=== PATIENT | male | born 1965 | race Two or more races ===

== ENCOUNTER 2023-11-26 17:44 | Inpatient (IN) | payer OTHER ==
--- NOTE | 2023-11-26 18:18 | ED ---
Abdominal Pain HPI - General Source: patient, RN notes reviewed Mode of arrival: ambulatory Limitations: no limitations <Mel Floyd - Last Filed: 11/26/23 18:17> <Jarrell Olmos - Last Filed: 11/27/23 03:04> - General Stated Complaint: Abd pain Time Seen by Provider: 11/26/23 18:17 - History of Present Illness Initial Comments: Quick note: 58-year-old male presented to the ER with a chief complaint of abdominal pain. Patient reports on Sunday he started to experience right lower quadrant abdominal pain. He also reports chills on Sunday. He denies any diarrhea, constipation, nausea or vomiting. Appetite has been mostly n ormal. Denies urinary complaints. (Mel Floyd) 58-year-old male presenting with chief complaint of abdominal pain. Patient has been having right lower quadrant abdominal pain since Sunday. He denies any nausea, vomiting, or diarrhea. He did have a bowel movement on Sunday when he woke up and started experiencing the pain. He recently took a laxative because he did not have a bowel movement on Sunday, had a normal bowel movement today Sunday. No dysuria or hematuria. Appetite has been slightly decreased. No history of abdominal surgeries. (Jarrell Olmos) - Related Data Allergies Allergy/AdvReac Type Severity Reaction Status Date / Time No Known Allergies Allergy Verified 11/26/23 18:34 Review of Systems ROS Other: All systems not noted in ROS Statement are negative. <Mel Floyd - Last Filed: 11/26/23 18:17> ROS Other: All systems not noted in ROS Statement are negative. <Jarrell Olmos - Last Filed: 11/27/23 03:04> ROS Statement: Those systems with pertinent positive or pertinent negative responses have been documented in the HPI. General Exam <Mel Floyd - Last Filed: 11/26/23 18:17> Limitations: no limitations General appearance: alert, in no apparent distress Head exam: Present: atraumatic, normocephalic Eye exam: Present: normal appearance, EOMI Neck exam: Present: normal inspection. Absent: meningismus Respiratory exam: Absent: respiratory distress Cardiovascular Exam: Present: regular rate GI/Abdominal exam: Present: soft, tenderness, guarding. Absent: distended, rebound, rigid Expanded GI/Abdominal exam: Present: tenderness at [place] Point Neurological exam: Present: alert, oriented X3 Psychiatric exam: Present: normal affect, normal mood Skin exam: Present: warm, dry <Jarrell Olmos - Last Filed: 11/27/23 03:04> - General Exam Comments Initial Comments: Visual Physical Exam Vital signs reviewed General: Well-appearing, nontoxic, no acute distress. Head: Normocephalic, atraumatic Eyes: PERRLA, EOMI ENT: Airway patent Chest: Nonlabored breathing Skin: No visual rash, normal skin tone Neuro: Alert and oriented 3 Musculoskeletal: No gross abnormalities (Mel Floyd) Course Vital Signs 11/26/23 18:33 Temperature 99.3 F Pulse Rate 71 Respiratory 18 Rate Blood Pressure 126/75 O2 Sat by Pulse 97 Oximetry Medical Decision Making <Mel Floyd - Last Filed: 11/26/23 18:17> - Lab Data Result diagrams: 11/26/23 18:24 11/26/23 18:24 <Jarrell Olmos - Last Filed: 11/27/23 03:04> - Medical Decision Making I performed the quick note portion of this chart. Electronically signed by Mel Floyd PA-C (Mel Floyd) Was pt. sent in by a medical professional or institution (RACIEL Schumacher, SENIOR ADMINISTRATIVE ASSISTANT, urgent care, hospital, or intermediate...) When possible be specific @ -No Did you speak to anyone other than the patient for history (EMS, parent, family, police, friend...)? What history was obtained from this source @ -No Did you review nursing and triage notes (agree or disagree)? Why? @ -I reviewed and agree with nursing and triage notes Were old charts reviewed (outside hosp., previous admission, EMS record, old EKG, old radiological studies, urgent care reports/EKG's, intermediate records)? Report findings @ -No old charts were reviewed Differential Diagnosis (chest pain, altered mental status, abdominal pain women, abdominal pain men, vaginal bleeding, weakness, fever, dyspnea, syncope, headache, dizziness, GI bleed, back pain, seizure, CVA, palpatations, mental health, musculoskeletal)? @ -MDM Differential Abdominal Pain Men: Appendicitis, cholecystitis, diverticulosis, ischemic bowel, pancreatitis, hepatitis, UTI, gastroenteritis, AAA, incarcerated hernia, bowel obstruction, constipation, inflammatory bowel, hepatitis, peptic ulcer disease, splenic infarction, perforated viscus, testicular torsion... This is not meant to be an all-inclusive list EKG interpreted by me (3pts min.). @ -As above X-rays interpreted by me (1pt min.). @ -None done CT interpreted by me (1pt min.). @ -CT shows perforated appendicitis, consisting of free air adjacent to the expected location of the appendix. Small tubular viscus extends from the free air to the cecum. Surgical evaluation recommended. U/S interpreted by me (1pt. min.). @ -None done What testing was considered but not performed or refused? (CT, X-rays, U/S, labs)? Why? @ -None What meds were considered but not given or refused? Why? @ -None Did you discuss the management of the patient with other professionals (professionals i.e. , PA, SENIOR ADMINISTRATIVE ASSISTANT, lab, RT, psych nurse, social services analyst, cook apprentice pastry, teacher, radio officer, pillowcase cutter)? Give summary @ -Spoke with Dr. Craig who accepted admission Was smoking cessation discussed for >3mins.? @ -No Was critical care preformed (if so, how long)? @ -No Were there social determinants of health that impacted care today? How? (Homelessness, low income, unemployed, alcoholism, drug addiction, transportation, low edu. Level, literacy, decrease access to med. care, long term, rehab)? @ -No Was there de-escalation of care discussed even if they declined (Discuss DNR or withdrawal of care, Hospice)? DNR status @ -No What co-morbidities impacted this encounter? (DM, HTN, Smoking, COPD, CAD, Cancer, CVA, ARF, Chemo, Hep., AIDS, mental health diagnosis, sleep apnea, morbid obesity)? @ -None Was patient admitted / discharged? Hospital course, mention meds given and route, prescriptions, significant lab abnormalities, going to OR and other pertinent info. @ -58-year-old male presenting with chief complaint of right lower quadrant pain ongoing for 2 days. Workup is initiated by triage. WBC 10.9. Lactic acid is WNL. Urine shows no infectious process. CT is obtained and patient is later placed in a room and evaluated by myself. While waiting for CT results patient did sign out AMA, a few minutes after CT results returned which showed perforated appendicitis. Nurse Marcos and I called the patient and his significan t other and instructed them to report back to the ER. Patient returned to room 6. Started on Zosyn after blood cultures are drawn. As needed pain and nausea meds and IV fluids are ordered. Admitted for surgical evaluation in the morning. Patient is NPO. He is agreeable with this plan. I discussed this case with my attending Dr. Caraballo. Undiagnosed new problem with uncertain prognosis? @ -No Drug Therapy requiring intensive monitoring for toxicity (Heparin, Nitro, Insulin, Cardizem)? @ -No Were any procedures done? @ -No Diagnosis/symptom? @ -Appendicitis with perforation Acute, or Chronic, or Acute on Chronic? @ -Acute Uncomplicated (without systemic symptoms) or Complicated (systemic symptoms)? @ -Complicated Side effects of treatment? @ -No Exacerbation, Progression, or Severe Exacerbation? @ -No Poses a threat to life or bodily function? How? (Chest pain, [place], [place], pneumonia, PE, COPD, DKA, ARF, appy, cholecystitis, CVA, Diverticulitis, Homicidal, Suicidal, threat to staff... and all critical care pts) @ -Yes (Jarrell Olmos) - Lab Data Lab Results 11/26/23 11/26/23 11/26/23 Range/Units 18:24 18:24 18:24 WBC 10.9 H (3.8-10.6) k/uL RBC 4.86 (4.30-5.90) m/uL Hgb 15.5 (13.0-17.5) gm/dL Hct 44.2 (39.0-53.0) % MCV 91.1 (80.0-100.0) fL MCH 31.9 (25.0-35.0) pg MCHC 35.0 (31.0-37.0) g/dL RDW 12.5 (11.5-15.5) % Plt Count 167 (150-450) k/uL MPV 8.9 Neutrophils % 84 % Lymphocytes % 9 % Monocytes % 4 % Eosinophils % 2 % Basophils % 0 % Neutrophils # 9.1 H (1.3-7.7) k/uL Lymphocytes # 1.0 (1.0-4.8) k/uL Monocytes # 0.5 (0-1.0) k/uL Eosinophils # 0.2 (0-0.7) k/uL Basophils # 0.0 (0-0.2) k/uL Sodium 136 L (137-145) mmol/L Potassium 3.8 (3.5-5.1) mmol/L Chloride 106 (98-107) mmol/L Carbon Dioxide 22 (22-30) mmol/L Anion Gap 8 mmol/L BUN 13 (9-20) mg/dL Creatinine 0.80 (0.66-1.25) mg/dL Est GFR (CKD-EPI)AfAm >90 (>60 ml/min/1.73 sqM) Est GFR (CKD-EPI)NonAf >90 (>60 ml/min/1.73 sqM) Glucose 119 H (74-99) mg/dL Plasma Lactic Acid Al (0.7-2.0) mmol/L Calcium 8.4 (8.4-10.2) mg/dL Total Bilirubin 1.0 (0.2-1.3) mg/dL AST 18 (17-59) U/L ALT 12 (4-49) U/L Alkaline Phosphatase 41 (38-126) U/L Total Protein 6.5 (6.3-8.2) g/dL Albumin 4.0 (3.5-5.0) g/dL Amylase 46 (30-110) U/L Lipase 96 (23-300) U/L Urine Color Yellow Urine Appearance Clear (Clear) Urine pH 6.0 (5.0-8.0) Ur Specific [place] 1.022 (1.001-1.035) Urine Protein 1+ H (Negative) Urine Glucose (UA) Negative (Negative) Urine Ketones Negative (Negative) Urine Blood Trace H (Negative) Urine Nitrite Negative (Negative) Urine Bilirubin Negative (Negative) Urine Urobilinogen 12.0 (<2.0) mg/dL Ur Leukocyte Esterase Negative (Negative) Urine RBC 1 (0-5) /hpf Urine WBC 1 (0-5) /hpf Urine Mucus Rare H (None) /hpf 11/26/23 Range/Units 18:24 WBC (3.8-10.6) k/uL RBC (4.30-5.90) m/uL Hgb (13.0-17.5) gm/dL Hct (39.0-53.0) % MCV (80.0-100.0) fL MCH (25.0-35.0) pg MCHC (31.0-37.0) g/dL RDW (11.5-15.5) % Plt Count (150-450) k/uL MPV Neutrophils % % Lymphocytes % % Monocytes % % Eosinophils % % Basophils % % Neutrophils # (1.3-7.7) k/uL Lymphocytes # (1.0-4.8) k/uL Monocytes # (0-1.0) k/uL Eosinophils # (0-0.7) k/uL Basophils # (0-0.2) k/uL Sodium (137-145) mmol/L Potassium (3.5-5.1) mmol/L Chloride (98-107) mmol/L Carbon Dioxide (22-30) mmol/L Anion Gap mmol/L BUN (9-20) mg/dL Creatinine (0.66-1.25) mg/dL Est GFR (CKD-EPI)AfAm (>60 ml/min/1.73 sqM) Est GFR (CKD-EPI)NonAf (>60 ml/min/1.73 sqM) Glucose (74-99) mg/dL Plasma Lactic Acid Al 0.8 (0.7-2.0) mmol/L Calcium (8.4-10.2) mg/dL Total Bilirubin (0.2-1.3) mg/dL AST (17-59) U/L ALT (4-49) U/L Alkaline Phosphatase (38-126) U/L Total Protein (6.3-8.2) g/dL Albumin (3.5-5.0) g/dL Amylase (30-110) U/L Lipase (23-300) U/L Urine Color Urine Appearance (Clear) Urine pH (5.0-8.0) Ur Specific [place] (1.001-1.035) Urine Protein (Negative) Urine Glucose (UA) (Negative) Urine Ketones (Negative) Urine Blood (Negative) Urine Nitrite (Negative) Urine Bilirubin (Negative) Urine Urobilinogen (<2.0) mg/dL Ur Leukocyte Esterase (Negative) Urine RBC (0-5) /hpf Urine WBC (0-5) /hpf Urine Mucus (None) /hpf Disposition <Mel Floyd - Last Filed: 11/26/23 18:17> Time of Disposition: 02:40 <Jarrell Olmos - Last Filed: 11/27/23 03:04> Clinical Impression: Appendicitis with perforation Disposition: ADMITTED IP TO THIS HOSP Condition: Fair Referrals: None,Stated [Primary Care Provider] - 1-2 days
[2023-11-26 18:56] LABS: Basophils % (A) 0 %; Eosinophils # (A) 0.2 k/uL (0-0.7); Eosinophils % (A) 2 %; HCT 44.2 % (39.0-53.0); HGB 15.5 gm/dL (13.0-17.5); Lymphocytes % (A) 9 %; MCH 31.9 pg (25.0-35.0); MCV 91.1 fL (80.0-100.0); Mean Platelet Volume 8.9; Monocytes # (A) 0.5 k/uL (0-1.0); Monocytes % (A) 4 %; Neutrophils # (A) 9.1 k/uL (1.3-7.7); Neutrophils % (A) 84 %; Platelet Count 167 k/uL (150-450); RBC 4.86 m/uL (4.30-5.90); RDW 12.5 % (11.5-15.5); WBC 10.9 k/uL (3.8-10.6)
[2023-11-26 19:14] LABS: ALT 12 U/L (4-49); AST 18 U/L (17-59); African American GFR (CKD) >90 (>60 ml/min/1.73 sqM); Alkaline Phosphatase 41 U/L (38-126); Amylase 46 U/L (30-110); Anion Gap 8 mmol/L; Blood Urea Nitrogen 13 mg/dL (9-20); Calcium 8.4 mg/dL (8.4-10.2); Carbon Dioxide 22 mmol/L (22-30); Chloride 106 mmol/L (98-107); Glucose 119 mg/dL (74-99); Lipase 96 U/L (23-300); Non-African American GFR(CKD) >90 (>60 ml/min/1.73 sqM); Potassium 3.8 mmol/L (3.5-5.1); Sodium 136 mmol/L (137-145); Total Protein 6.5 g/dL (6.3-8.2)
[2023-11-26 21:58] LABS: Appearance,Urine Clear (Clear); Bilirubin,Urine Negative (Negative); Blood,Urine Trace (Negative); Color,Urine Yellow; Glucose,Urine (UA) Negative (Negative); Ketones,Urine Negative (Negative); Leukocyte Esterase,Urine Negative (Negative); Mucus,Urine Rare /hpf; Nitrite,Urine Negative (Negative); Protein,Urine 1+ (Negative); RBC,Urine 1 /hpf (0-5); Specific Gravity,Urine 1.022 (1.001-1.035); WBC,Urine 1 /hpf (0-5)
[2023-11-26] MEDS: KETOROLAC 15 MG/ML 1 ML VIAL IVP STA (23:49)
[2023-11-26] MEDS: SODIUM CHLORIDE 0.9% 1,000 ML IV ONE (23:50)
--- NOTE | 2023-11-27 02:29 | CT ---
EXAM: CT Abdomen and Pelvis With Intravenous Contrast CLINICAL HISTORY: ITS.REASON CT Reason: RLQ pain TECHNIQUE: Axial computed tomography images of the abdomen and pelvis with intravenous contrast. CTDI is 17.7 mGy and DLP is 889 mGy-cm. This CT exam was performed using one or more of the following dose reduction techniques: automated exposure control, adjustment of the mA and/or kV according to patient size, and/or use of iterative reconstruction technique. COMPARISON: No relevant prior studies available. FINDINGS: Lung bases: Unremarkable. No mass. No consolidation. ABDOMEN: Liver: Unremarkable. No mass. Gallbladder and bile ducts: Unremarkable. No calcified stones. No ductal dilation. Pancreas: Unremarkable. No mass. No ductal dilation. Spleen: Unremarkable. No splenomegaly. Adrenals: Unremarkable. No mass. Kidneys and ureters: Unremarkable. No solid mass. No hydronephrosis. Stomach and bowel: Unremarkable. No obstruction. No mucosal thickening. PELVIS: Appendix: Perforated appendicitis, consisting of free air adjacent to the expected location of the appendix. Small tubular viscus extends from the free air to the cecum. Surgical evaluation recommended. Bladder: Unremarkable. No mass. Reproductive: Unremarkable as visualized. ABDOMEN and PELVIS: Intraperitoneal space: See above. Bones/joints: No acute fracture. No dislocation. Soft tissues: Unremarkable. Vasculature: Unremarkable. No abdominal aortic aneurysm. Lymph nodes: Unremarkable. No enlarged lymph nodes. IMPRESSION: Perforated appendicitis, consisting of free air adjacent to the expected location of the appendix. Small tubular viscus extends from the free air to the cecum. Surgical evaluation recommended. <MYCVCSECTION> Communications: 11/27/23 02:33 Call Doctor Regarding Other, called Dr. Caraballo on 11/26 02:33 (-04:00)
[2023-11-27] MEDS ORDERED: MORPHINE SULFATE 4 MG/ML SYRINGE IV PRN (02:39)
[2023-11-27] MEDS ORDERED: NALOXONE 0.4 MG/ML 1 ML VIAL IV PRN ×2 (02:39→10:39)
[2023-11-27] MEDS: SODIUM CHLORIDE 0.9% 1,000 ML IV SCH (03:08)
[2023-11-27] MEDS: PIPERACILLIN-TAZOBACTAM 3.375 GM in SODIUM CHLORIDE 0.9% 100 ML IVPB STA (03:08)
[2023-11-27] MEDS: MORPHINE SULFATE 4 MG/ML SYRINGE IVP STA (07:09)
--- NOTE | 2023-11-27 08:15 | P.GSHP ---
History of Present Illness H&P Date: 11/27/23 Chief Complaint: Right lower quadrant pain This a 58-year-old male who has had right lower quadrant pain for [address] scan. Patient found to have evidence of ruptured appendicitis. Past Medical History Past Medical History: No Reported History History of Any Multi-Drug Resistant Organisms: None Reported Additional Past Surgical History / Comment(s): vasectomy Past Psychological History: No Psychological Hx Reported Smoking Status: Never smoker Past Alcohol Use History: Occasional Past Drug Use History: None Reported Medications and Allergies Allergies Allergy/AdvReac Type Severity Reaction Status Date / Time No Known Allergies Allergy Verified 11/26/23 18:34 Surgical - Exam Vital Signs Temp Pulse Resp BP Pulse Ox 99.3 F 71 18 126/75 97 11/26/23 18:33 11/26/23 18:33 11/26/23 18:33 11/26/23 18:33 11/26/23 18:33 - General well developed, well nourished, no distress - Eyes PERRL - ENT normal pinna - Neck no masses - Respiratory normal expansion - Cardiovascular Rhythm: regular - Abdomen Right lower quadrant pain Abdomen: soft Results - Labs 11/26/23 18:24 11/26/23 18:24 Abnormal Lab Results - Last 24 Hours (Table) 11/26/23 11/26/23 11/26/23 Range/Units 18:24 18:24 18:24 WBC 10.9 H (3.8-10.6) k/uL Neutrophils # 9.1 H (1.3-7.7) k/uL Sodium 136 L (137-145) mmol/L Glucose 119 H (74-99) mg/dL Urine Protein 1+ H (Negative) Urine Blood Trace H (Negative) Urine Mucus Rare H (None) /hpf Diabetes panel 11/26/23 Range/Units 18:24 Sodium 136 L (137-145) mmol/L Potassium 3.8 (3.5-5.1) mmol/L Chloride 106 (98-107) mmol/L Carbon Dioxide 22 (22-30) mmol/L BUN 13 (9-20) mg/dL Creatinine 0.80 (0.66-1.25) mg/dL Glucose 119 H (74-99) mg/dL Calcium 8.4 (8.4-10.2) mg/dL AST 18 (17-59) U/L ALT 12 (4-49) U/L Alkaline Phosphatase 41 (38-126) U/L Total Protein 6.5 (6.3-8.2) g/dL Albumin 4.0 (3.5-5.0) g/dL Calcium panel 11/26/23 Range/Units 18:24 Calcium 8.4 (8.4-10.2) mg/dL Albumin 4.0 (3.5-5.0) g/dL Pituitary panel 11/26/23 Range/Units 18:24 Sodium 136 L (137-145) mmol/L Potassium 3.8 (3.5-5.1) mmol/L Chloride 106 (98-107) mmol/L Carbon Dioxide 22 (22-30) mmol/L BUN 13 (9-20) mg/dL Creatinine 0.80 (0.66-1.25) mg/dL Glucose 119 H (74-99) mg/dL Calcium 8.4 (8.4-10.2) mg/dL Adrenal panel 11/26/23 Range/Units 18:24 Sodium 136 L (137-145) mmol/L Potassium 3.8 (3.5-5.1) mmol/L Chloride 106 (98-107) mmol/L Carbon Dioxide 22 (22-30) mmol/L BUN 13 (9-20) mg/dL Creatinine 0.80 (0.66-1.25) mg/dL Glucose 119 H (74-99) mg/dL Calcium 8.4 (8.4-10.2) mg/dL Total Bilirubin 1.0 (0.2-1.3) mg/dL AST 18 (17-59) U/L ALT 12 (4-49) U/L Alkaline Phosphatase 41 (38-126) U/L Total Protein 6.5 (6.3-8.2) g/dL Albumin 4.0 (3.5-5.0) g/dL Assessment and Plan Plan: CT scan suggestive of l acute appendicitis with possible rupture. Patient was sent for laparoscopic appendectomy. Patient aware the risk of possible open procedure.
[2023-11-27] MEDS: PIPERACILLIN-TAZOBACTAM 3.375 GM in SODIUM CHLORIDE 0.9% 100 ML IVPB SCH (08:32)
[2023-11-27] MEDS: DEXAMETHASONE SOD PHOSPHATE 4 MG/ML 1 ML VIAL IVP STA (09:43)
[2023-11-27] MEDS: ONDANSETRON 4 MG/2 ML VIAL IVP PRN (09:43)
[2023-11-27] MEDS: HEPARIN SODIUM,PORCINE 5,000 UNIT/ML 1 ML VIAL SQ STA (09:50)
[2023-11-27] MEDS: IV FLUID CONTINUATION 1,000 ML IV ONE ×2 (09:52→14:32)
[2023-11-27] MEDS: LIDOCAINE 1%-EPI 1:100,000 20 ML VIAL SQ ONE ×3 (09:54→10:20)
[2023-11-27] MEDS ORDERED: SUGAMMADEX SODIUM 200 MG/2 ML SDV IV ONE (09:57)
[2023-11-27] MEDS ORDERED: SUCCINYLCHOLINE CHLORIDE 200 MG/10 ML VIAL IV ONE (09:57)
[2023-11-27] MEDS ORDERED: PROPOFOL 10 MG/ML 20 ML VIAL IV ONE (09:57)
[2023-11-27] MEDS ORDERED: LIDOCAINE 1% INJ 10MG/ML (20 ML MDV) ONE (09:57)
[2023-11-27] MEDS ORDERED: ROCURONIUM 10 MG/ML (5 ML VIAL) IV ONE (09:57)
[2023-11-27] MEDS ORDERED: KETOROLAC 15 MG/ML 1 ML VIAL ONE (09:57)
[2023-11-27] MEDS ORDERED: KETAMINE HCL IN 0.9 % NACL 50 MG/5 ML SYRINGE ONE (09:57)
[2023-11-27] MEDS ORDERED: MIDAZOLAM 2 MG/2 ML VIAL ONE (09:57)
[2023-11-27] MEDS ORDERED: fentaNYL (PF) 50 MCG/ML 2 ML AMP ONE (09:57)
[2023-11-27] MEDS: LACTATED RINGERS 1,000 ML IV ONE (10:20)
[2023-11-27] MEDS ORDERED: HYDROmorphone 1 MG/ML 1 ML SYRINGE IVP PRN (10:39)
[2023-11-27] MEDS ORDERED: HYDROmorphone 0.5 MG/0.5 ML SYRINGE IVP PRN (10:39)
[2023-11-27] MEDS ORDERED: ONDANSETRON 4 MG/2 ML VIAL IVP PRN (10:39)
[2023-11-27] MEDS ORDERED: HYDROcodone/APAP 5-325MG 1 EACH TAB PO PRN (10:39)
--- NOTE | 2023-11-27 10:39 | P.OP ---
Date of Procedure: 11/27/23 Preoperative Diagnosis: Acute appendicitis Postoperative Diagnosis: Acute appendicitis Procedure(s) Performed: Laparoscopic appendectomy Anesthesia: CARLEY Surgeon: Pancho Craig Estimated Blood Loss (ml): 5 Pathology: other (Appendix) Condition: stable Disposition: PACU Operative Findings: Acute appendicitis with microperforation Description of Procedure: The patient's placed on the operating table in the supine position. The patient received general anesthesia. The abdomen was prepped and draped in the usual sterile fashion. The skin was anesthetized 1% local Xylocaine at the trocar sites. Using an 11 blade the skin was incised at the umbilicus. The umbilicus was grasped with a Quinn clamp and then a Veress needle was placed into the peritoneal cavity. Position of the Veress needle was confirmed with positive drop test. After adequate insufflation a 5 mm trocar was placed into the peritoneal cavity. The abdomen was further insufflated. And then the laparoscope was placed in the peritoneal cavity. Next a 5 mm trocar was placed in the midline suprapubic position. And then a 10 mm trocar was placed in the midline epigastric position. The patient was rotated with the right side up and in Trendelenburg. The appendix was visualized. The appendix appeared to be inflamed. The appendix was grasped and then using the Harmonic scissors the mesoappendix was divided. A PDS Endoloop was then placed around the base of the appendix. And then the appendix was divided using Harmonic scissors. The appendix was placed into an Endo Catch and brought out through the 10 mm trocar site. The abdomen was irrigated. There is no bleeding seen. The trochars withdrawn. The skin was closed interrupted 3-0 Monocryl suture. Dermabond dressing was applied. Patient was sent to recovery room in stable condition.
[2023-11-27] MEDS: LACTATED RINGERS 1,000 ML IV SCH (14:32)
[2023-11-27] MEDS: KETOROLAC 15 MG/ML 1 ML VIAL IVP SCH (15:31)
[2023-11-27] MEDS: ACETAMINOPHEN TAB 325 MG TAB PO PRN (21:58)
[2023-11-28] MEDS: LACTATED RINGERS 1,000 ML IV SCH (01:00)
[2023-11-28 08:41] LABS: Basophils # (A) 0.02 X 10*3/uL (0.00-0.10); Basophils % (A) 0.3 %; Eosinophils # (A) 0.04 X 10*3/uL (0.04-0.35); Eosinophils % (A) 0.6 %; HCT 35.6 % (39.6-50.0); HGB 12.1 g/dL (13.0-17.0); Lymphocytes # (A) 0.95 X 10*3/uL (0.90-5.00); Lymphocytes % (A) 13.9 %; MCH 30.4 pg (27.0-32.0); MCV 89.4 FL (80.0-97.0); Mean Platelet Volume 11.9 FL (9.5-12.2); Monocytes % (A) 7.3 %; NRBC Per 100 WBC 0 X 10*3/uL (0.00-0.01); Neutrophils % (A) 77.5 %; Platelet Count 139 X 10*3/uL (140-440); RBC 3.98 X 10*6/uL (4.40-5.60); RDW 12.4 % (11.5-14.5); WBC 6.84 X 10*3/uL (4.50-10.00)
[2023-11-28] MEDS: KETOROLAC 15 MG/ML 1 ML VIAL IVP PRN (09:06)
[2023-11-28] MEDS: ENOXAPARIN 40 MG/0.4 ML SYRINGE SQ SCH (09:07)
[2023-11-28 09:08] LABS: BUN/Creat Ratio 10.64 Ratio (12.00-20.00); Blood Urea Nitrogen 11.7 mg/dL (9.0-27.0); Calcium 7.9 mg/dL (8.7-10.3); Carbon Dioxide 22.8 mmol/L (21.6-31.8); Chloride 105 mmol/L (96-109); Glucose 103 mg/dL (70-110); Potassium 3.9 mmol/L (3.5-5.5); Sodium 138 mmol/L (135-145)
--- NOTE | 2023-11-28 15:45 | P.PN ---
Subjective Progress Note Date: 11/28/23 CHIEF COMPLAINT: Acute appendicitis HISTORY OF PRESENT ILLNESS: Patient is postop day 1 status post laparoscopic appendectomy. Patient reports his pain is controlled. He denies any nausea or vomiting. He did have a bowel movement. He is up and ambulating. Afebrile. BP on the lower side 95/57. WBC 6.84 Hgb 12.1 platelets 139 Patient seen and examined with Dr. Craig PHYSICAL EXAM: VITAL SIGNS: Reviewed. GENERAL: Well-developed in no acute distress. ABDOMEN: Soft. Nondistended. Incision sites clean dry and intact NEUROLOGIC: Alert and oriented. Cranial nerves II through XII grossly intact. ASSESSMENT: 1. Acute appendicitis with microperforation 2. Hypotension PLAN: -Continue antibiotics -1 L fluid bolus ordered for hypotension -Anticipate possible discharge tomorrow -Continue regular diet -Continue IV fluids -Continue pain management -DVT prophylaxis Lovenox Physician Fuel Injection Servicer note has been reviewed by physician. Signing provider agrees with the documented findings, assessment, and plan of care. Objective - Vital Signs Vital signs: Vital Signs Temp 97.7 F 11/28/23 14:00 Pulse 63 11/28/23 14:00 Resp 16 11/28/23 14:00 BP 94/52 11/28/23 14:00 Pulse Ox 97 11/28/23 14:00 FiO2 Intake & Output 11/27/23 11/28/23 11/28/23 18:59 06:59 18:59 Intake Total 1700 236 Output Total 4 Balance 1696 236 Intake: IV 1700 Oral 236 Output: Estimated Blood Loss 4 Other: # Voids 1 1 1 # Bowel Movements 2 - Labs CBC & Chem 7: 11/28/23 05:22 11/28/23 05:22 Labs: Abnormal Lab Results - Last 24 Hours (Table) 11/28/23 11/28/23 Range/Units 05:22 05:22 RBC 3.98 L (4.40-5.60) X 10*6/uL Hgb 12.1 L (13.0-17.0) g/dL Hct 35.6 L (39.6-50.0) % Plt Count 139 L (140-440) X 10*3/uL BUN/Creatinine Ratio 10.64 L (12.00-20.00) Ratio Calcium 7.9 L (8.7-10.3) mg/dL Microbiology - Last 24 Hours (Table) 11/27/23 03:08 Blood Culture - Preliminary Blood 11/27/23 02:53 Blood Culture - Preliminary Blood
[2023-11-28] MEDS: SODIUM CHLORIDE 0.9% 1,000 ML IV ONE (15:59)
[2023-11-29 03:24] VITALS: RESP 16
--- NOTE | 2023-11-29 05:38 | P.CONS ---
History of Present Illness - Reason for Consult Consult date: 11/28/23 Medical management, status post appendectomy - History of Present Illness This is a 58-year-old male who was recently admitted under general surgery services as patient was noted to have severe lower quadrant pain and underwent CT imaging in the ER showing to have a perforated appendicitis and is status post laparoscopic appendectomy. On admission his initial white count was mildly elevated at 10.9 and patient reports he may have had a fever and reports to starting to have pain in the lower abdomen that lasted for 2 days and persisted before coming in. Other labs reviewed and within normal limits. Patient had a low-grade temp last night of 99.9 postoperatively other than that has been afebrile. Patient is currently sitting up in the chair reports to feeling well and has been walking frequently. Per surgery patient will continue on IV antibiotic therapy for an additional 24 hours with possible discharge planning in the next 24 hours. Patient reports he does not currently have a primary care provider and resources will be provided on discharge. Patient denies any significant medical history other than a mildly elevated cholesterol level and has been attempting diet modification. REVIEW OF SYSTEMS: CONSTITUTIONAL: No fever, no malaise, no fatigue. HEENT: No recent visual problems or hearing problems. Denied any sore throat. CARDIOVASCULAR: No chest pain, orthopnea, PND, no palpitations, no syncope. PULMONARY: No shortness of breath, no cough, no hemoptysis. GASTROINTESTINAL: No diarrhea, no nausea, no vomiting, reported abdominal pain although improved. NEUROLOGICAL: No headaches, no weakness, no numbness. HEMATOLOGICAL: Denies any bleeding or petechiae. GENITOURINARY: Denies any burning micturition, frequency, or urgency. MUSCULOSKELETAL/RHEUMATOLOGICAL: Denies any joint pain, swelling, or any muscle pain. ENDOCRINE: Denies any polyuria or polydipsia. The rest of the 14-point review of systems is negative. PHYSICAL EXAMINATION: GENERAL: The patient is alert and oriented x3, not in any acute distress. Well developed, well nourished. HEENT: Pupils are round and equally reacting to light. EOMI. No scleral icterus. No conjunctival pallor. Normocephalic, atraumatic. No pharyngeal erythema. No thyromegaly. CARDIOVASCULAR: S1 and S2 present. No murmurs, rubs, or gallops. PULMONARY: Chest is clear to auscultation, no wheezing or crackles. ABDOMEN: Soft, minimally tender, nondistended, normoactive bowel sounds. No palpable organomegaly. MUSCULOSKELETAL: No joint swelling or deformity. EXTREMITIES: No cyanosis, clubbing, or pedal edema. NEUROLOGICAL: Gross neurological examination did not reveal any focal deficits. SKIN: No rashes. Assessment: Abdominal pain secondary to acute appendicitis with microperforation as noted on CT, status post laparoscopic appendectomy Leukocytosis likely secondary to above, resolved Minimally elevated cholesterol per patient GI prophylaxis DVT prophylaxis Full code Plan: Patient was admitted under surgery services status post laparoscopic appendectomy, postop day 1. Patient is sitting up in the chair looks well and reports to feeling well would like to go home. Patient to continue on IV antibiotics as there was concern of microperforation. White count has normalized and patient is afebrile. Continue antibiotic for now per surgery recommendations Encouraged incentive spirometer use at least 10 times every hour while awake including taking home and using Regular diet has been resumed Will provide resources to primary care provider on discharge as patient currently does not have a PCP We will continue to follow with general surgery during hospitalization. Thank you kindly for this consultation. The impression and plan of care has been dictated by Dulce Hudson, Nurse Practitioner as directed. Dr. Lawrence MD I have performed a history and examination and MDM of this patient, discussed the same with the dictator, and agree with the dictator's assessment and plan as written ,documented as a scribe. Based on total visit time, I have performed more than 50% of the visit. Past Medical History Past Medical History: No Reported History History of Any Multi-Drug Resistant Organisms: None Reported Additional Past Surgical History / Comment(s): vasectomy Past Psychological History: No Psychological Hx Reported Smoking Status: Never smoker Past Alcohol Use History: Occasional Past Drug Use History: None Reported Medications and Allergies Home Medications Medication Instructions Recorded Confirmed Type No Known Home Medications 11/27/23 11/27/23 History Allergies Allergy/AdvReac Type Severity Reaction Status Date / Time No Known Allergies Allergy Verified 11/27/23 08:38 Physical Exam Vitals: Vital Signs Temp Pulse Pulse Resp BP BP Pulse Ox 11/28/23 07:00 98.1 F 68 15 95/57 96 11/28/23 03:06 98.3 F 57 L 16 97/58 97 11/27/23 19:54 99.9 F H 73 16 100/56 94 L 11/27/23 15:08 99.3 F 82 16 111/68 92 L 11/27/23 14:15 74 18 117/69 99 11/27/23 13:15 69 18 104/65 97 11/27/23 12:45 70 18 101/61 98 11/27/23 12:15 72 16 104/60 97 11/27/23 11:45 77 20 108/54 96 11/27/23 11:30 70 16 104/60 97 11/27/23 11:15 72 18 107/61 95 11/27/23 11:00 77 18 115/65 93 L 11/27/23 10:46 97.2 F L 83 16 114/61 99 Intake and Output 11/27/23 11/28/23 11/28/23 22:59 06:59 14:59 Intake Total 118 Balance 118 Intake: Oral 118 Other: # Voids 1 1 Results CBC & Chem 7: 11/28/23 05:22 11/28/23 05:22 Labs: Abnormal Lab Results - Last 24 Hours (Table) 11/28/23 11/28/23 Range/Units 05:22 05:22 RBC 3.98 L (4.40-5.60) X 10*6/uL Hgb 12.1 L (13.0-17.0) g/dL Hct 35.6 L (39.6-50.0) % Plt Count 139 L (140-440) X 10*3/uL BUN/Creatinine Ratio 10.64 L (12.00-20.00) Ratio Calcium 7.9 L (8.7-10.3) mg/dL
[2023-11-29 08:09] VITALS: BP 128/78; PULSE 61; TEMP 97.5
[2023-11-29 08:52] LABS: Basophils # (A) 0.04 X 10*3/uL (0.00-0.10); Basophils % (A) 0.8 %; Eosinophils # (A) 0.22 X 10*3/uL (0.04-0.35); Eosinophils % (A) 4.5 %; HCT 33.1 % (39.6-50.0); HGB 10.9 g/dL (13.0-17.0); Lymphocytes # (A) 1.04 X 10*3/uL (0.90-5.00); Lymphocytes % (A) 21.4 %; MCH 29.9 pg (27.0-32.0); MCHC 32.9 g/dL (32.0-37.0); MCV 90.7 FL (80.0-97.0); Mean Platelet Volume 12.1 FL (9.5-12.2); Monocytes # (A) 0.33 X 10*3/uL (0.20-1.00); Monocytes % (A) 6.8 %; NRBC Per 100 WBC 0 X 10*3/uL (0.00-0.01); Neutrophils # (A) 3.21 X 10*3/uL (1.80-7.70); Neutrophils % (A) 66.1 %; Platelet Count 165 X 10*3/uL (140-440); RBC 3.65 X 10*6/uL (4.40-5.60); RDW 12.8 % (11.5-14.5); WBC 4.86 X 10*3/uL (4.50-10.00)
--- NOTE | 2023-11-29 12:42 | P.DS ---
Providers Date of admission: 11/27/23 02:40 Expected date of discharge: 11/29/23 Attending physician: Pancho Craig Consults: 11/27/23 10:39 Consult Physician Routine Consulting Provider: Betzy Tuttle Consult Reason/Comments: Medical management Do you want consulting provider notified?: Yes Primary care physician: Stated None Hospital Course: Discharge diagnosis 1. Acute appendicitis with microperforation Hospital course This is a 58-year-old male who presented the hospital with right lower quadrant abdominal pain. CT scan had shown evidence of ruptured appendicitis. Patient is status post laparoscopic appendectomy. Patient tolerated surgery well. Pain is controlled. He has been up and ambulating. He is having bowel movements. He is afebrile. Denies any difficulty urinating. He is stable for discharge. He will be discharged home with oral antibiotics. Please refer to chart for any further details. Physician Copyright Clerk note has been reviewed by physician. Signing provider agrees with the documented findings, assessment, and plan of care. Patient Condition at Discharge: Stable Plan - Discharge Summary New Discharge Prescriptions: New HYDROcodone/APAP 5-325MG [Delta 5-325] 1 tab PO Q6HR PRN 3 Days #12 tab PRN Reason: Pain cefUROXime axetiL [Cefuroxime] 500 mg PO BID 10 Days #20 tab metroNIDAZOLE [Flagyl] 500 mg PO TID 10 Days #30 tab Discharge Medication List HYDROcodone/APAP 5-325MG [Delta 5-325] 1 tab PO Q6HR PRN 3 Days #12 tab 11/29/23 [Rx] cefUROXime axetiL [Cefuroxime] 500 mg PO BID 10 Days #20 tab 11/29/23 [Rx] metroNIDAZOLE [Flagyl] 500 mg PO TID 10 Days #30 tab 11/29/23 [Rx] Follow up Appointment(s)/Referral(s): None,Stated [Primary Care Provider] - 1-2 days Pancho Craig MD [STAFF PHYSICIAN] - 12/06/23 2:40 pm Patient Instructions/Handouts: Laparoscopic Appendectomy (DC) Activity/Diet/Wound Care/Special Instructions: No driving while taking Delta No lifting over 10 pounds Shower daily. No soaking or tub baths for 2 weeks Very light activity until you are reevaluated at your follow up appointment with your surgeon Discharge Disposition: HOME SELF-CARE
== END 2023-11-29 13:05 | disposition home or self-care (01) | DRG 399 ==
LOC: EC 17:44 → 4SSUR 11-27 02:40 → 6NMEDSUR 11-27 14:35
PROVIDERS: ADMIT Surgery; ATTEND Surgery
PROC: 0DTJ4ZZ Resection of Appendix, Percutaneous Endoscopic Approach (ICD-10-PCS; principal; 2023-11-27 14:35)
DX: K35.33 Acute appendicitis with perforation, localized peritonitis, and gangrene, with abscess (principal); E78.00 Pure hypercholesterolemia, unspecified; I95.9 Hypotension, unspecified; Z28.310 Unvaccinated for COVID-19
CPT/HCPCS: 36415; 74177; 80048; 80053; 81001; 82150; 83605; 83690; 85025; 87040; 88304; 96361; 96365; 96366; 96375; 99285